=== PATIENT | female | born 1945 | race Caucasian/White ===

== ENCOUNTER 2024-12-15 16:56 | Inpatient (IN) | payer MEDICARE, SELFPAY ==
[2024-12-15] VITALS (7 sets, daily range): BP systolic 135–159; BP diastolic 55–128; BMI 24.1
--- NOTE | 2024-12-15 14:35 | ED.GENMED ---
History of Present Illness
General
Chief Complaint: Dizziness
Source: patient
Exam Limitations: none
Time Seen by Provider: 12/15/24 14:22
History of Present Illness
History of Present Illness:
See MDM
Past History
Past History
ED Past Medical History: CAD, Cancer and HTN
ED Past Surgical History: Cardiac
Social History
Tobacco: Non-smoker
Alcohol: None
Phy Exam
Physical Exam
Physical Exam:
See MDM
Course
Orders/Labs/Results
Orders:
Orders
12/15/24 14:35
CR Chest - 2 Views Urgent
Comment:
Reason For Exam: Cough, chest pressure
12/15/24 14:37
Electrocardiogram (*1) Urgent
Reason for Study: Chest Pain
EKG- Treatment ONCE
12/15/24 14:47
COVID-19 Antigen Urgent
Source: Nasal Swab
Complete Blood Count/With Diff Urgent
Comprehensive Metabolic Panel Urgent
NT-proBNP Urgent
PTT Urgent
Prothrombin Time Urgent
Troponin I Urgent
12/15/24 15:43
Aspirin Chewable [Low Strength Aspirin] 243 mg PO NOW STA
Guaifenesin/Dextromethorphan [Robitussin Dm] 10 ml PO NOW STA
Nitroglycerin Sublingual [Nitrostat (Sublingual)] 0.4 mg SL [id number] PRN
Potassium Chloride Powder [Klor-Con] 40 meq PO NOW STA
12/15/24 15:47
Consult Cardiology [CARDIOLOGY CONSULT] Urgent
Consulting Provider: Baldemar Bowman
Was physician already notified: Yes
12/15/24 16:28
Heparin 3,800 units IV NOW STA
12/15/24 16:[address] Non Medication Order As Directed
Physician Order: PTT 6 hours after initial start of Heparin infusion
Above order entered?: Yes
12/15/24 16:30
Heparin 07814 Units/250 ml 25,000 units in 250 ml IV PER PROTOCOL
Weight to be used for heparin protocol in kilograms (kg):: 63.6
Protocol:: Cardiac Tx/Acute Coronary
PTT Goal Range to be used:: PTT 73 to 111 seconds
Order type:: Initial
INITIAL Infusion Dose (UNITS/KG/hr) & then follow protocol:: 12 units/kg/hr
Infusion Dose in UNITS/hr & then follow protocol (UNITS/hr):: 750
INFUSION RATE in mL/hr & then follow protocol (mL/hr):: 7.5
PTT less than or equal to 64 seconds:: Increase rate by 200 units/hr (+ 2 mL/hr)
PTT 64.1 to 72.9 seconds:: Increase rate by 100 units/hr (+ 1 mL/hr)
PTT 73 to 111 seconds:: Target Range. No change in rate.
PTT 111.1 to 130.9 seconds:: Decrease rate by 100 units/hr (- 1 mL/hr)
PTT 131 to 199.9 seconds:: HOLD for 1 hr. Then decrease rate by 200 units/hr (- 2 mL/hr)
PTT greater than or equal to 200 seconds:: HOLD for 2 hrs & Notify Provider. Then decrease by 200 units/hr (-
2 mL/hr)
Lab follow-up:: Each change, PTT q6h until 2 consecutive are therapeutic. Then PTT
daily.
12/15/24 16:45
Admit/Transfer Patient As Directed
Co-Sign Provider:
Level of Care: Inpatient admission
Assign to:: IVU
Physician / Group: Hospitalist
Diagnosis: Chest pain
Reason for Hospitalization: .
Expected length of stay greater than two midnights?: Yes
ELOS- Estimated Length of Stay in days: 3
I certify the patient meets the requirements for IP care: Yes
PRN Pain Medication Management As Directed
May give lesser potent ordered pain med per pt: Yes
preference::
Protocol:: Medication orders for pain may be administered in a
manner that supports deferring to patient preference
when the pt is:
- Requesting an ordered lesser potent pain medication.
Least to most potent pain medications are defined
as: acetaminophen < NSAID < tramadol < opioids
(morphine, oxycodone, hydromorphone).
- Requesting a lesser dose of the same medication IF
ORDERED.
- Requesting a less intrusive route of administration
if both routes are prescribed by the provider (PO <
IV).
12/15/24 16:48
Nitroglycerin 100 mg/250 ml [Nitroglycerin Premix] 100 mg in 250 ml IV NOW
Initial dose in mcg/min, then titrate:: 5
Titrate to keep:: SBP < 160 mmHg
Titrate by mcg/min:: 5 mcg/min, may increase by 10 mcg/min if dose > 20 mcg/min
Frequency of titrations (minutes):: every 3-5 minutes
Maximum dose in mcg/min:: 200
Begin to taper infusion when:: Remained at goal for 2hrs
Taper by mcg/min:: 5 mcg/min
Frequency of taper (minutes) if patient maintains goal:: 30
Taper to off?: Yes
If infusion off & no longer maintaining goal:: Contact Provider
12/15/24 18:03
Acetaminophen [Tylenol] 500 mg PO DAILYPRN PRN mild pain
12/15/24 20:00
Lisinopril [Zestril] 5 mg PO BID
12/15/24 22:00
Alprazolam [Xanax] 0.25 mg PO HS
12/16/24 08:00
Non-Formulary Item See Dose Instructions PO DAILY
Non-Formulary Item See Dose Instructions PO DAILY
Abnormal Lab Results
12/15/24
14:47
RBC 3.86 L 10^6/uL
(4.20-5.40)
Hgb 11.0 L g/dL
(12.0-16.0)
Hct 33.4 L %
(37.0-47.0)
MCHC 32.9 L g/dL
(33.0-37.0)
RDW 15.3 H %
(11.5-14.5)
Absolute Lymphs (auto) 1.0 L 10^3/uL
(1.2-3.4)
Lymphocytes % 15.4 L %
(20.5-51.1)
Monocytes % 10.2 H %
(1.7-9.3)
PT 15.0 H Sec
(11.4-14.6)
APTT 36.8 H Sec
(23.4-35.0)
Potassium 3.1 L mmol/L
(3.5-5.1)
Carbon Dioxide 31 H mmol/L
(22-30)
Glucose 127 H mg/dl
(70-99)
Troponin I 0.154 H* ng/ml
Albumin 3.3 L g/dl
(3.5-5.0)
12/15/24 14:47
12/15/24 14:47
Vital Signs
Initial and Last Documented VS:
Initial Vital Signs
Temp Pulse Resp BP Pulse Ox
98.0 F 78 16 152/66 94
12/15/24 13:22 12/15/24 13:22 12/15/24 13:22 12/15/24 13:22 12/15/24 13:22
Last Documented Vital Signs
Temp Pulse Resp BP Pulse Ox
98.9 F 67 18 137/47 96
12/16/24 15:33 12/16/24 16:45 12/16/24 15:33 12/16/24 15:05 12/16/24 15:33
MDM/Problems Addressed
Differential Diagnosis Includes:
HPI and MDM Narrative:
79-year-old female presenting with several days of cough and chest pressure. Patient was seen at multiple emergency departments recently. She states she left the first emergency department when she felt that she was not being treated
appropriately. She then went to another emergency department and it was suggested that she was admitted for an elevated troponin. However, they refused to treat her cough so she then left. She comes to the emergency department here for persistent
cough and chest pressure. Patient has a history of CABG 7 years ago. She is on aspirin and Plavix. Patient states she believes that she needs to be admitted again. Will repeat blood work and EKG
Patient has a history of stage I vocal cord cancer. She just finished several treatments of vocal cord radiation.
Physical exam
General: Well appearing and non-toxic
HEENT: protecting airway. Hoarse voice
Neck: supple
CV: No evidence of cyanosis. Regular rate and rhythm
Resp: No accessory muscle use. Lungs clear
Abd: Non-distended
Extremities: No deformities. Bilateral edema bilateral lower extremities
Neuro: alert
Psych: Normal affect
Skin: Intact
Problems Addressed including Acute and Chronic Conditions affecting care:
1. Cough
Acuity: acute
Prognosis: stable
Details: Will obtain chest x-ray
2. Chest pressure
Acuity: acute
Prognosis: stable
Details: Will obtain EKG and troponin
Updates
Patient found to have elevated troponin. At this time, patient now developing chest pressure. Will give nitroglycerin and discuss case with cardiology to decide whether or not to start heparin. She took 1 baby aspirin and 1 Plavix earlier today.
Will give 3 more baby aspirin. Will replete potassium as well
Case discussed with cardiology who agreed with starting heparin
Case we discussed with cardiology who also recommended starting nitro drip
Differential Diagnosis (but not limited to): Noncardiac chest pressure, ACS, myocarditis, pneumonia
Testing considered: D-dimer
Drug therapy (if applicable): OTC meds, please see d/c instruction regarding Rx drugs
Amount and/or Complexity of Data Reviewed
Clinical info obtained from: Patient
External data reviewed: N/A
Labs I independently reviewed (but not limited to): Elevated troponin
Radiology: N/A
Pulse Ox: not hypoxic
EKG independently reviewed: Sinus rhythm, ST depression and T wave inversions inferior and laterally, no STEMI
Purchase Order Checker: Sinus rhythm
Critical Care: The high probability of a clinically significant, sudden or life threatening deterioration of the cardiovascular system(s) required my full and direct attention, intervention and personal management. The aggregate critical care time
was 35 minutes. This time is in addition to time spent performing reported procedures but includes the following:
[x] Data Review and interpretation
[x] Patient assessment and monitoring of vital signs
[x] Documentation
[x] Medication orders and management
Risk of Complication:
Social Determinants of health: Good social support
Discussed with other providers: Schedule Announcer, hospitalist
Escalation of Care includes Admit/Obs: Given prior history of elevated troponin, will admit for further workup
Occasional wrong word or 'sound a like' substitutions may have occurred due to the inherent limitations of voice recognition software. Read the chart carefully and recognize, using context, where substitutions have occurred.
*Pulse Oximetry
SaO2: 94
Oxygen Mode of Delivery: Room air
Patient hypoxic: no
*Critical Care Note
Total Time (30-74mins, 75-104mins- exclusive of procedures): 35 min
ED Attending Note
-
Portions of this chart may have been created with voice recognition software.� Occasional wrong word or��sound alike� substitutions may have occurred due to the inherent limitations of voice recognition software.
Discharge Plan
Departure
Patient Disposition: Admit
Date of Disposition: 12/15/24
Time of Disposition: 15:50
Admit to: Telemetry
Presentation/result/management discussed w/ accepting MD/DO: Hospitalist
Discharge Problem:
Non-ST elevation [place] (NSTEMI)
Interventions
Interventions:
*Risk Screen - Suicide Last Done: 12/15/24 13:22
*General Assessment Last Done: 12/15/24 16:24
*Neglect/Abuse Screening Last Done: 12/15/24 13:22
*ED- Fall Risk Assessment Last Done: 12/15/24 16:31
*ED COVID-19 Vaccine History Last Done: 12/15/24 16:24
*Nursing Disposition Last Done: 12/15/24 18:25
ED- Cardiac Assessment Last Done: 12/15/24 15:00
ED- Neurological Assessment Last Done: 12/15/24 15:31
ED Swallowing Screen Last Done: 12/15/24 15:31
Discharge Date and Time
Discharge Date/Time: 12/15/24 18:26
[2024-12-15 15:04] LABS: Hematocrit 33.4 % (37.0-47.0); Hemoglobin 11.0 g/dL (12.0-16.0); Mean Corp Hgb Conc. 32.9 g/dL (33.0-37.0); Mean Corpuscular Volume 86.5 fL (81.0-99.0); Nucleated Red Blood Cells % 0 %; Platelet Count 223 10^3/uL (130-400); Red Cell Dist. Width 15.3 % (11.5-14.5)
[2024-12-15 15:11] LABS: INR 1.15; PT 15.0 Sec (11.4-14.6)
[2024-12-15 15:12] LABS: APTT 36.8 Sec (23.4-35.0)
[2024-12-15 15:20] LABS: ALT (SGPT) 12 U/L (0-35); AST (SGOT) 20 U/L (14-36); Albumin 3.3 g/dl (3.5-5.0); Alkaline Phosphatase 67 U/L (38-126); Blood Urea Nitrogen 7 mg/dl (7-17); Calcium 9.3 mg/dl (8.4-10.2); Carbon Dioxide 31 mmol/L (22-30); Chloride 99 mmol/L (98-107); Glucose 127 mg/dl (70-99); Potassium 3.1 mmol/L (3.5-5.1); Sodium 135 mmol/L (135-145); Total Protein 6.4 g/dl (6.3-8.2); eGFR 57.66
[2024-12-15 15:35] LABS: COVID-19 Antigen Negative (Negative)
[2024-12-15 15:37] LABS: Troponin I 0.154 ng/ml
[2024-12-15] MEDS: ROBITUSSIN DM 10 ML PO (15:51)
[2024-12-15] MEDS: LOW STRENGTH ASPIRIN 243 MG PO (15:51)
[2024-12-15] MEDS: NITROSTAT (SUBLINGUAL) 0.4 MG SL (15:52)
--- NOTE | 2024-12-15 16:00 | CON.CAR ---
Consultation
Consultation Request
Date/Time Consultation Requested: 12/15/2024 at 1600
Date/Time Consultation Performed: 12/15/2024 at 1615
Requesting Provider: Dr. Fernando Glass
Performing Provider: Dr. Baldemar Bowman
Reason for Consultation: Chest pain with EKG changes and positive troponin
Medical History
-
Chief Complaint: Chest pressure
History of Present Illness:
79-year-old woman with a history of coronary artery bypass years ago, at [facility]. She reports that a year later she had a PCI. In September diagnosed with vocal cord cancer, and has completed radiation therapy without chemotherapy or
extensive resection. She has been troubled by chronic cough since that time and hoarseness. She has lost 20 pounds. Starting about 2 weeks ago she began to develop chest pressure that was often worse lying down. She had an overnight observation
stay at [facility] and since then has had 3 or 4 ER visits, [address] [facility] facility 2 at [facility] and now [facility]. Cardiac catheterization was mentioned in the detectable troponin was mentioned. At times she left the
hospital ER for various reasons. She is now here with persistent chest pressure. This did not markedly improved with sublingual nitro. She has been on Plavix and aspirin for many years.
Past Medical History
Past Medical History: CAD, Cancer (Vocal cord cancer, has received radiation therapy), COPD, Hypercholesterolemia (Statin intolerant, on Praluent as) and NIDDM
Past Surgical History: Cardiac (History of CABG)
Allergies / Home Medications
Allergy/AdvReac Type Severity Reaction Status Date / Time
spironolactone Allergy Unknown Verified 12/15/24 13:29
Boqsvav-NUI-MyE Reductase Allergy Unknown Verified 12/15/24 13:29
Inhibitor
Review of Systems
-
Unable to obtain full review of systems at this time due to: Other (Vocal cord surgery)
History Source: Patient and Family
All other systems: Negative unless noted
Physical Exam
Vital Signs
Temp Pulse Resp BP Pulse Ox
36.7 C 68 21 151/119 94
12/15/24 13:22 12/15/24 15:30 12/15/24 15:30 12/15/24 15:52 12/15/24 14:37
Lab Results
12/15/24 14:47
12/15/24 14:47
Troponin I 0.154 ng/ml H* 12/15/24 14:47
Fbh-B-Ojrzjbohern Pept 4700 pg/ml 12/15/24 14:47
Physical Exam
General: No Apparent Distress and Other
HEENT: Normocephalic (Difficulty speaking related to recent vocal cord radiation/biopsy)
Respiratory: Clear
Cardiac: Regular Rhythm and Murmur (No murmur)
GI: Soft and Non Tender
Musculoskeletal: No Cyanosis and No Edema
Skin: Dry
Neuro: AO x 3
Psych: Calm
Impression / Plan
-
Impression:
Acute coronary syndrome
CAD status post CABG/PCI
Statin intolerant hypercholesterolemia on Praluent
COPD
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
Hypertension
Diet controlled diabetes
Weight loss
Plan:
She presents with an acute coronary syndrome and anterior lateral T wave inversions. Despite this, she seems comfortable at present, so we will not send her urgently to the [employer] [facility]. Will treat with IV heparin and IV nitro, add low-dose
metoprolol, and plan on proceeding with cardiac catheterization on Tuesday.
Will check echo.
Data Reviewed
-
EKG: Tracing Personally Visualized and interpreted (Normal sinus rhythm, diffuse anterolateral and inferior T wave inversions, no prior tracings available)
Radiology: Image Personally Visualized and interpreted (Cardiomegaly)
Labs: Labs Reviewed by me (Hemoglobin 11.0, white count 6.3, potassium 3.1, CO2 31, BUN/creatinine 7 and 1.0, troponin 0.154, proBNP 4700)
Old Records: Requested
[2024-12-15] MEDS: HEPARIN 3800 UNITS IV (16:40)
[2024-12-15] MEDS: HEPARIN 25000 UNITS/250 ML IV (16:41)
--- NOTE | 2024-12-15 16:41 | PHANOTE ---
med rec tech note 12/15/24: Patient states that she must have name brand Plavix due to an allergy. She has her own supply.
--- NOTE | 2024-12-15 16:43 | HPS.HSE ---
Family Physician
-
Family Physician: Jose Oakley
Chief Complaint
-
Chest pain for 10 days duration
History of Present Illness
79 years old female with history of coronary artery disease presented with chest pain, pressure-like. On and off for 10 days. Patient went to [facility]. She was discharged home. She continued to have a problem and went to
[facility] Where she was told she had elevated troponin and needed to be admitted. She was admitted to the hospital. Patient has chronic cough and requested Robitussin, according to the patient. She was not given Robitussin and
she left the hospital against medical advice. In the emergency room, she had mildly positive troponin at 0.154. Chest x-ray, no acute findings, EKG nonspecific ST elevation with no comparison available. Patient was seen by electric meter repairer on-call
and started on intravenous heparin and the recommendation to be admitted for left heart catheterization in near future.
Medical History
Past Medical History
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
Past Surgical History: Reports Other (No recent major surgery)
Social History
Tobacco: Former Smoker
Alcohol: Occasional
Drug: None
Personal:
Living: With Family
Employment: Retired
Family History
Family History: Not pertinent
Allergies / Home Medications
Allergies reflects when Allergies were last updated in [employer].
Home Medications with original date entered in [employer]
Allergy/Medication List:
Allergies
Allergy/AdvReac Type Severity Reaction Status Date / Time
spironolactone Allergy Unknown Verified 12/15/24 13:29
Jhnxztf-VUG-BnC Reductase Allergy Unknown Verified 12/15/24 13:29
Inhibitor
Home Medications
Lactobac no.2-Bifidobac no.1-S. thermo 112.5 billion cell capsule (TipHivebiome) 1 cap PO DAILY 07/12/25
acetaminophen 500 mg tablet 500 mg PO DAILYPRN PRN mild pain 12/15/24
alirocumab 150 mg/mL subcutaneous pen injector (Praluent Pen) 150 mg SC Q2W 12/15/24
alprazolam 0.25 mg tablet 0.25 mg PO HS 12/15/24
aspirin 81 mg tablet 81 mg PO DAILY 12/15/24
clopidogrel 75 mg tablet (Plavix) 75 mg PO DAILY 12/15/24
doxycycline hyclate 20 mg tablet 20 mg PO BID 12/15/24
lisinopril 2.5 mg tablet 2.5 mg PO NOON 12/15/24
lisinopril 5 mg tablet 5 mg PO BID 12/15/24
scopolamine base 1 mg over 3 days transdermal patch 1 patch transdermal DAILY 12/15/24
Review of Systems
-
History Source: Patient
A 12 point ROS was completed and negative except as noted: Yes
Constitutional: Denies Fever or Chills
EENT: Denies Sore Throat
Respiratory: Reports Cough
Cardiac: Reports Chest Pain (Not at time of interviewing the patient)
Abdomen/GI: Denies Abdominal Pain, Nausea or Vomiting
: Denies Dysuria or Bleeding
Musculoskeletal: Denies Joint Swelling or Edema
Neurological: Denies Numbness
Endocrine: Denies Temp Intolerance
Hematologic/Lymphatic: Denies Bruising
Psych: Reports Anxiety; Denies Panic Disorder
Physical Exam
Vital Signs
Vital Signs
Temp Pulse Resp BP Pulse Ox
98.0 F 70 21 135/55 94
12/15/24 13:22 12/15/24 16:24 12/15/24 16:24 12/15/24 16:00 12/15/24 14:37
Physical Exam
General: No Apparent Distress and Comfortable
HEENT: Moist mucous membranes, Atraumatic and Other (Hoarse voice)
Respiratory: Clear
Cardiac: S1/S2 and Regular Rhythm
GI: Soft, Non Tender and Non Distended
Genito-urinary: No Shelley
Musculoskeletal: No Clubbing, No Cyanosis and No Edema
Neuro: AO x 3 and Nonfocal/grossly intact
Psych: Calm and Intact Judgment/Insight
Laboratory Results
-
12/15/24 14:47
12/15/24 14:47
Laboratory Results
PT 15.0 Sec (11.4-14.6) H 12/15/24 14:47
INR 1.15 12/15/24 14:47
APTT 36.8 Sec (23.4-35.0) H 12/15/24 14:47
Total Bilirubin 0.7 mg/dl (0.2-1.3) 12/15/24 14:47
AST 20 U/L (14-36) 12/15/24 14:47
ALT 12 U/L (0-35) 12/15/24 14:47
Alkaline Phosphatase 67 U/L (38-126) 12/15/24 14:47
Troponin I 0.154 ng/ml H* 12/15/24 14:47
Impression/Plan
-
Assessment and plan
#Chest pain with history of angina chest pain, unstable angina
Non-ST elevation [place]
Admit the patient to the hospital
Patient currently does not have chest pain
Start the patient on intravenous heparin
Start the patient on low-dose nitrate
Continue antiplatelet therapy with aspirin and Plavix
Discussed with electric meter repairer on-call, monitor the patient and plan for left heart catheterization on Tuesday
Order echocardiogram
internet ecommerce specialist
Appreciate cardiology input
# Hypokalemia, replace
# Chronic cough
Normal chest x-ray
Patient denies aspiration risk
Patient requesting to use her own's Robitussin bottle with brewer flavor
# Essential hypertension
# History of vocal cord cancer/squamous cell status post radiation with hoarseness/whispering of voice
Patient denies dysphagia
Currently not on chemotherapy
# History of insomnia/anxiety
On chronic benzodiazepine therapy
# History of dental implants/chronic antibiotic therapy
# Try to get records from [facility] as patient is new to us
Total time spent to see the patient, examine the patient, review data and lab result, discuss treatment plan with patient, ER doctor, electric meter repairer, nursing staff around 75 minutes
--- NOTE | 2024-12-15 17:08 | CM ---
CM reviewed chart and met with pt and bedside in ED.
Lives with in 1 story home, [address].
Pt is independent in ADLs, personal care and ambulation at baseline. No DME.
Hx VN 8 years ago after heart surgery, no hx SNF.
PCP; Jose Oakley
Pharmacy:[facility]
Discharge plan: Anticipate home, watch for needs
[2024-12-15] MEDS: NITROGLYCERIN PREMIX 250 IV (17:35)
--- NOTE | 2024-12-15 18:47 | PTCARENOTE ---
Received pt from the ED via stretcher. VSS. Pt continues to c/o 3 out of 10 midsternal 'chest pressure'. Pt denies dizziness or sob. Heparin infusing at 7.5 ml/hr. Nitroglycerin drip infusing at 5 mcg/kg/min. Oriented pt to IVU. Pt ambulatory
and sitting in the recliner at this time. Will monitor.
[2024-12-15] MEDS: XANAX 0.25 MG PO ×2 (21:59→22:01)
[2024-12-15] MEDS: NON-FORMULARY ITEM 1 UNIT PO (22:00)
[2024-12-15] MEDS: TRANSDERM-SCOP 1 PATCH TRANSDERM (22:01)
[2024-12-15] MEDS: KCL 160 MEQ IV (22:02)
[2024-12-15] MEDS: NON-FORMULARY ITEM 10 ML PO (22:28)
[2024-12-15] MEDS: NON-FORMULARY ITEM PO (22:55)
--- NOTE | 2024-12-15 23:25 | PTCARENOTE ---
received patient at the change of shift. patient refusing nitro gtt from the previous shift r/t itching of the skin. patient is currently chest pain free. educated to call RN with any changes in pain. heparin gtt infusing per protocol. SR on tele
60s. independent in the room. patient will not take hospital medications- states only wanted to take her own 'brand'. updated Cristina Stearns UPHOLSTERER OUTSIDE. orders placed for medications and sent to pharmacy. K3.1. patient states NOT taking any potassium in the
ED. updated Cristina Stearns as well. RN was able to educate patient on the importance and patient allowed for IV K. ordered and given. running at a slow rate- okay per pharmacy. patient reluctant to let RN complete tasks. educated patient on
importance, for example blood draws. patient allowed RN to draw blood and states 'no more after that.' again, educated patient on importance and patient verbalized understanding but 'still not happy.' comfort measures provided. call huang within
reach. makes needs known.
[2024-12-15 23:27] LABS: APTT 77.8 Sec (23.4-35.0)
[2024-12-15 23:41] LABS: Troponin I 0.157 ng/ml
[2024-12-16] VITALS (8 sets, daily range): BP systolic 137–181; BP diastolic 47–75; BMI 24.4
[2024-12-16] MEDS: NON-FORMULARY ITEM 10 ML PO ×4 (05:31→20:07)
[2024-12-16 06:04] LABS: APTT 74.7 Sec (23.4-35.0)
[2024-12-16 06:21] LABS: Blood Urea Nitrogen 6 mg/dl (7-17); Calcium 8.5 mg/dl (8.4-10.2); Carbon Dioxide 28 mmol/L (22-30); Chloride 104 mmol/L (98-107); Estimated Creatinine Clearance 44 ml/min; Glucose 91 mg/dl (70-99); Potassium 3.8 mmol/L (3.5-5.1); Sodium 136 mmol/L (135-145); eGFR > 60.00
[2024-12-16 06:35] LABS: Troponin I 0.112 ng/ml
--- NOTE | 2024-12-16 08:22 | W.PN.HOSP.TC ---
Today's Communication/Plan
-
Patient is taking medications from her home bottles except Xanax
Continue with IV heparin
As needed Zofran for nausea
Assessment / Plan
Assessment / Plan
Physical Exam
General: No Apparent Distress and Comfortable
HEENT: Moist mucous membranes, Atraumatic and Other (Hoarse voice)
Respiratory: Clear
Cardiac: S1/S2 and Regular Rhythm
GI: Soft, Non Tender and Non Distended
Genito-urinary: No Shelley
Musculoskeletal: No Clubbing, No Cyanosis and No Edema
Neuro: AO x 3 and Nonfocal/grossly intact
Psych: Calm and Intact Judgment/Insight
#Chest pain with history of angina chest pain, unstable angina
Non-ST elevation [place]
Patient currently does not have chest pain
Started the patient on intravenous heparin
Increase lisinopril to 5 mg twice daily. She is taking Plavix, lisinopril and aspirin from home, she refused BB .
Continue antiplatelet therapy with aspirin and Plavix
Discussed with field automobile adjuster on-call, monitor the patient and plan for left heart catheterization on Tuesday
Order echocardiogram
hospital monitor
Appreciate cardiology input
# Hypokalemia, replaced
# Nausea, no abdominal pain, as needed Zofran
# Chronic cough
Normal chest x-ray
Patient denies aspiration risk
Patient requesting to use her own's Robitussin bottle with brewer flavor
# Essential hypertension
Slightly uncontrolled, increased JOSE Lisinopril
# History of vocal cord cancer/squamous cell status post radiation with hoarseness/whispering of voice
Patient denies dysphagia
Currently not on chemotherapy
# History of insomnia/anxiety
On chronic benzodiazepine therapy
# History of dental implants/chronic antibiotic therapy
# Try to get records from [facility] as patient is new to us
Acute coronary syndrome
CAD status post CABG/PCI
Statin intolerant hypercholesterolemia on Praluent
COPD
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
Hypertension
Diet controlled diabetes
Weight loss
Total time spent to see the patient, examine the patient, review data and lab result, discuss treatment plan with patient, nursing staff around 55 minutes
Anticipated Discharge: > 48 hours
Subjective/Interval History
-
Date of Service: December 16, 2024
She denies chest pain
Objective Data
-
Labs:
Laboratory Results
12/15/24 12/16/24
22:57 05:35
APTT 77.8 H 74.7 H
Sodium 136
Potassium 3.8
Chloride 104
Carbon Dioxide 28
BUN 6 L
Creatinine 0.9
Glucose 91
Calcium 8.5
Vital Signs:
Vital Signs
Temp Pulse Resp BP Pulse Ox
98.6 F 75 17 155/48 95
12/16/24 07:53 12/16/24 05:35 12/16/24 07:53 12/16/24 05:35 12/16/24 07:53
I&O
12/15/24 12/16/24 12/17/24
06:59 06:59 06:59
Intake Total 250 / 250
Balance 250 / 250
--- NOTE | 2024-12-16 09:15 | W.PN.CARDCBS ---
Today's Communication / Plan
-
Cardiac cath in a.m.
Bumex 0.5 mg IV x 1
No beta-adrianna or Lasix, patient refuses
Continue heparin
Impression / Plan
-
Impression:
Acute coronary syndrome
CAD status post CABG/PCI
Statin intolerant hypercholesterolemia on Praluent
COPD
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
Hypertension
Diet controlled diabetes
Weight loss
Plan:
She had a quiet night, ECG is pending at this time, no chest pain, states she feels well.
However, some evidence of volume overload. She states that 'Lasix does not work for 4 days and then works nonstop'. However she is willing to accept a small dose of IV Bumex
She is beta-adrianna intolerant and during sleep heart rate is in the 50s.
Will renew heparin.
Records for op note for CABG have been requested.
Increase lisinopril to 5 mg twice daily. She is taking Plavix, lisinopril and aspirin from home.
Cardiac catheterization tomorrow.
Await echocardiogram.
Progress Note - [employer] Physical Education Teacher
Subjective
Date of Service: December 16, 2024:
79-year-old woman with remote coronary artery bypass surgery and PCI a year later, now with symptoms of chest discomfort, an overnight observation stay at [facility] at multiple ER visits at several institutions admitted yesterday with troponin
of 0.15 with anterolateral and inferior T wave inversions
PMH CAD, CABG, PCI, vocal cord cancer just compete pleated radiation therapy, COPD, hypercholesterolemia on Praluent, diabetes and hypertension
Current medications: IV heparin, IV nitroglycerin, Xanax, aspirin 81 mg a day, Plavix 75 mg a day, doxycycline, lisinopril 5 mg twice daily, IV nitroglycerin has been discontinued, scopolamine patch
States she is very poorly tolerant of metoprolol, also refuses Lasix,
155/48, pulse 75, states she feels well, has rales in bases, has what could be loud S3, JVD minimally elevated, systolic murmur, abdomen benign extremities without edema
Hemoglobin 11.0, platelets 223, BUN and creatinine are 6 and 0.9 potassium is 3.8, proBNP is 4700, troponin is 0.112
Objective
Labs:
12/15/24 14:47
12/16/24 05:35
Labs
Hgb 11.0 g/dL (12.0-16.0) L 12/15/24 14:47
Hct 33.4 % (37.0-47.0) L 12/15/24 14:47
Plt Count 223 10^3/uL (130-400) 12/15/24 14:47
PT 15.0 Sec (11.4-14.6) H 12/15/24 14:47
INR 1.15 12/15/24 14:47
APTT 74.7 Sec (23.4-35.0) H 12/16/24 05:35
Sodium 136 mmol/L (135-145) 12/16/24 05:35
Potassium 3.8 mmol/L (3.5-5.1) 12/16/24 05:35
BUN 6 mg/dl (7-17) L 12/16/24 05:35
Creatinine 0.9 mg/dL (0.6-1.0) 12/16/24 05:35
Glucose 91 mg/dl (70-99) 12/16/24 05:35
Troponins
12/15/24 12/15/24 12/15/24
14:47 17:15 22:57
Troponin I 0.154 H* Cancelled 0.157 H*
12/16/24
05:35
Troponin I 0.112 H* D
Vital Signs and I&O:
Vital Signs
Temp Pulse Resp BP Pulse Ox
37.0 C 75 17 155/48 95
12/16/24 07:53 12/16/24 05:35 12/16/24 07:53 12/16/24 05:35 12/16/24 07:53
Vital Signs
Temp Pulse Resp BP Pulse Ox
37.0 C 75 17 155/48 95
12/16/24 07:53 12/16/24 05:35 12/16/24 07:53 12/16/24 05:35 12/16/24 07:53
Intake & Output
12/14/24 12/15/24 12/16/24 12/17/24
07:59 07:59 07:59 07:59
Intake Total 250 / 250
Balance 250 / 250
Physical Exam
Physical Exam
See above
[2024-12-16] MEDS: ZOFRAN 4 MG IV (09:41)
[2024-12-16] MEDS: NON-FORMULARY ITEM 1 UNIT PO ×4 (09:58→22:09)
[2024-12-16] MEDS: NON-FORMULARY ITEM 20 MG PO ×2 (10:00→22:08)
[2024-12-16] MEDS: VISBIOME 1 CAP PO (10:32)
[2024-12-16] MEDS: BUMEX 0.5 MG IV (10:38)
--- NOTE | 2024-12-16 13:22 | PTCARENOTE ---
Discussed the importance of taking all medications. Discussed the importance of Kcl replacement. Pt refused KCL 40 meq, po. aware. Will monitor.
[2024-12-16] MEDS: ANESTHETIC LOZENGE 1 LOZENGE PO ×2 (13:28→20:54)
[2024-12-16] MEDS: TRANSDERM-SCOP TRANSDERM (17:53)
[2024-12-16] MEDS: TRANSDERM-SCOP 1 PATCH TRANSDERM (20:57)
[2024-12-16] MEDS: XANAX 0.25 MG PO (22:10)
--- NOTE | 2024-12-16 22:24 | PTCARENOTE ---
Received patient at change of shift. SR on the monitor, HR in the 70s. VSS on room air. Heparin running as per protocol, see documentation. 20:00 meds administered at 22:00 as per pt request. PRN Xanax administered as per pt request. Call huang
within reach.
[2024-12-17] VITALS (15 sets, daily range): BP systolic 60–164; BP diastolic 36–119; BMI 24.2
[2024-12-17] MEDS: NON-FORMULARY ITEM 10 ML PO (01:17)
[2024-12-17] MEDS: HEPARIN 25000 UNITS/250 ML IV (02:15)
[2024-12-17 02:46] LABS: Hematocrit 29.9 % (37.0-47.0); Hemoglobin 10.0 g/dL (12.0-16.0); Mean Corp Hgb Conc. 33.4 g/dL (33.0-37.0); Mean Corpuscular Volume 86.9 fL (81.0-99.0); Platelet Count 223 10^3/uL (130-400); Red Cell Dist. Width 15.5 % (11.5-14.5)
[2024-12-17 03:01] LABS: APTT 59.7 Sec (23.4-35.0)
[2024-12-17 03:09] LABS: Blood Urea Nitrogen 7 mg/dl (7-17); Calcium 8.7 mg/dl (8.4-10.2); Carbon Dioxide 33 mmol/L (22-30); Chloride 103 mmol/L (98-107); Estimated Creatinine Clearance 40 ml/min; Glucose 101 mg/dl (70-99); Potassium 3.5 mmol/L (3.5-5.1); Sodium 136 mmol/L (135-145); eGFR 57.66
[2024-12-17] MEDS: XANAX 0.25 MG PO ×2 (08:45→21:48)
[2024-12-17] MEDS: NON-FORMULARY ITEM 1 UNIT PO ×4 (08:46→21:47)
[2024-12-17] MEDS: VISBIOME 1 CAP PO (08:46)
[2024-12-17] MEDS: NON-FORMULARY ITEM 20 MG PO ×2 (08:47→21:46)
--- NOTE | 2024-12-17 09:14 | PTCARENOTE ---
received patient this am, has alot of questions. patient remains NPO for heart cath today. patient is extremely anxious about procedure and request Xanax po, TT Deysi GOLDSMITH, Xanax po given as ordered along with her am medications. patient has a
raspy voice from vocal cord cancer, able to swallow pills, just 2 at a time. monitor shows NSR, VSS.
--- NOTE | 2024-12-17 09:15 | W.PN.HOSP.TC ---
Today's Communication/Plan
-
For cardiac catheterization today
Assessment / Plan
Assessment / Plan
#Chest pain with history of angina chest pain, unstable angina
#Non-ST elevation GA
Patient currently does not have chest pain
Patient refusing beta-adrianna, Lasix. Status post IV Bumex 12/16
Appreciate cardiology input, for cardiac catheterization today
Continue IV heparin drip, home aspirin, Plavix, lisinopril.
Echocardiogram requested
#Hypokalemia
replaced
#Nausea
no abdominal pain, as needed Zofran
#Chronic cough
Normal chest x-ray
Patient denies aspiration risk
Patient requesting to use her own's Robitussin bottle with brewer flavor
#Essential hypertension
Slightly uncontrolled, increased JOSE Lisinopril
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
Patient denies dysphagia
Currently not on chemotherapy
#History of insomnia/anxiety
On chronic benzodiazepine therapy
#History of dental implants/chronic antibiotic therapy
DVT prophylaxis�IV heparin drip
Full code
Total time spent to see the patient on the floor, examine the patient, review data and lab results, discuss treatment plan with patient, nursing staff around 39 minutes.
Physical Exam
General: No Apparent Distress and Comfortable
HEENT: Moist mucous membranes, Atraumatic and Other (Hoarse voice)
Respiratory: Clear
Cardiac: S1/S2 and Regular Rhythm
GI: Soft, Non Tender and Non Distended
Genito-urinary: No Shelley
Musculoskeletal: No Clubbing, No Cyanosis and No Edema
Neuro: AO x 3 and Nonfocal/grossly intact
Psych: Calm and Intact Judgment/Insight
Anticipated Discharge: 24 - 48 hours
Subjective/Interval History
-
Date of Service: December 17, 2024
Patient has chronic hoarse voice. No recurrence of chest pain. No fever, no vomiting, no shortness of breath.
Objective Data
-
Labs:
Laboratory Results
12/17/24 12/17/24
02: 09:10
WBC 6.1
Hgb 10.0 L
Hct 29.9 L
Plt Count 223
APTT 59.7 H Pending
Sodium 136
Potassium 3.5
Chloride 103
Carbon Dioxide 33 H
BUN 7
Creatinine 1.0
Glucose 101 H
Calcium 8.7
Vital Signs:
Vital Signs
Temp Pulse Resp BP Pulse Ox
98.3 F 62 20 150/44 95
12/17/24 07:02 12/17/24 04:45 12/17/24 07:02 12/17/24 02:19 12/17/24 07:02
I&O
12/16/24 12/17/24 12/18/24
06:59 06:59 06:59
Intake Total 250 / 250 360 / 360
Balance 250 / 250 360 / 360
[2024-12-17 09:31] LABS: APTT 92.4 Sec (23.4-35.0)
--- NOTE | 2024-12-17 09:31 | W.PN.UPDATE ---
Addendum entered and electronically signed by Deysi Pricthett PA-C 12/17/24 10:29:
Got another call from Jenae at [facility] and she did additional digging and was able to find old cath and CABG reports and is faxing them down now. Jenae was also able to push images via [employer] which is huge!
Original Note:
Update Note
Progress Note Update
Patient asking to review plan of care. Talked with patient in room and reviewed cardiac cath procedure and the timing, patient does not want cath after 2 PM. We talked about 3 cases being ahead of patient and that cath would likely happen around
noon, but asked patient to be patient and give us braulio on a Tuesday and patient was agreeable.
Update: I called [facility] and connected with the cath lab technologist. They were able to find a cath from 2018, but no mention of PCI or CABG on the report. They are now using COM DEV so they can't push images because cath was from before Epic and
the images didn't switch over. label coder willing to fax me old cath report and are asking for a letterhead faxed to [phone]. I started this series of calls at [phone] and ended at [phone].
--- NOTE | 2024-12-17 10:21 | CM ---
Reviewed chart. Met with Mrs. Nunes to review discharge plans. She states she is waiting for a Cardiac Cath today. She states prior to admission she resides with her spouse in a one story home with three steps to enter. She states prior to
admission she was independent with ambulation and adls. She states she does not have any DME in the home. She states she has a prescription plan with [facility] and uses [facility]. Medical work-up in progress. The discharge plan is
to return home with her spouse when medically stable.
--- NOTE | 2024-12-17 10:36 | W.PN.UPDATE ---
Update Note
Progress Note Update
Cardiac cath obtained by me from [facility], reports reviewed and summarized below by me.
Cardiac cath 4-18: They have [facility], GREENS LABORER RCA, 100% mid LAD adding as a GREENS LABORER, discrete 95% stenosis in the Diag-1, proximal circumflex with 90% tubular stenosis, vein graft to Diag-1 with discrete 90% stenosis at the distal anastomosis that
was treated with PTCA and 2.25 mm Promus MAYRA
CABG 08/19/2016: BROWN to distal LAD, vein graft to diagonal
[2024-12-17] MEDS: TYLENOL 500 MG PO (11:16)
--- NOTE | 2024-12-17 11:17 | PTCARENOTE ---
patient c/o headache, Tylenol po given as ordered.
--- NOTE | 2024-12-17 14:14 | PTCARENOTE ---
patient is very anxious about cath today, sat with patient and offered emotional support. at bedside.
--- NOTE | 2024-12-17 14:49 | PTCARENOTE ---
echo being completed at bedside.
[2024-12-17] MEDS: ZESTRIL 2.5 MG PO (15:00)
--- NOTE | 2024-12-17 16:43 | PTCARENOTE ---
report given to labor arbitrator, the labor arbitrator came over to get patient, patient informed her that she wants 'knocked out', the nurses informed her that she cannot be knocked out. Dr. Yanez came over at bedside, talked to patient and now she is willing to
go to labor arbitrator.
--- NOTE | 2024-12-17 17:55 | ITS.CL.CATH ---
Plating Machine Operator - Catheterization
Cardiac Catheterization
Procedure Report:
LEFT HEART CATHETERIZATION
Date of Procedure: November 17, 2024
Referring: Baldemar Bowman MD
PROCEDURES:
1. Left heart catheterization, coronary angiogram.
2. Moderate sedation.
3. Selective graft angiography
INDICATION: Concern for NSTEMI
ACCESS: Left radial artery, 6Fr. sheath, under US guidance.
HEMODYNAMICS : (mmHg)
AO (s/d) : 161/53
LVEDP : 13
No significant gradient across the aortic valve to suggest aortic stenosis.
CORONARY FINDINGS
Dominance: Right
Left Main Trunk (LMT): Large caliber short vessel that gives rise to the LAD and LCx branches and is free of angiographic disease.
Left Anterior Descending Artery (LAD): Large caliber vessel with 90% stenosis in the proximal portion and 100% chronic total occlusion in the mid LAD with the distal/apical LAD collateralized from a patent BROWN graft. [id number] bridging
collaterals noted.
Left Circumflex Artery (LCx): Medium caliber left circumflex artery with moderate diffuse atherosclerotic plaque and extensive bridging collaterals noted with no obvious PCI targets.
Right Coronary Artery (RCA): The right coronary artery appears to be heavily calcified with 100% ostial occlusion with [id number] collaterals.
GRAFT ANGIOGRAPHY:
1. BROWN to LAD is widely patent. [place] distal LAD has disease in the retrograde limb but is small in caliber with no obvious PCI targets. There are bridging collaterals noted to the RCA.
2. Saphenous vein graft to D1 appears to now be occluded in the proximal portion.
SEDATION: 37 minutes of procedural sedation was utilized. IV Midazolam and IV Fentanyl were administered. An independent medical reception specialist was present to assist with and help manage the patient's level of consciousness and physiologic status.
RADIATION SUMMARY: Fluoro Time (min): 9.0, Dose (mGy): 207.47, DAP (Gy.cm2) : 14.0
Closure Device: There were no immediate intra-procedural complications. The sheath was pulled in the hot plate plywood press laborer and a vascular-band applied to the right wrist for radial artery hemostasis using the patent hemostasis technique.
CONCLUSIONS
1. Severe [place] multivessel coronary artery disease.
2. BROWN to LAD is widely patent.
3. Saphenous vein graft to D1 appears to be occluded.
RECOMMENDATIONS
1. Wean radial band per protocol. Monitor right hand perfusion and for bleeding from the radial site following removal of the vascular-band following trans-radial access.
2. Continue aggressive medical therapy and risk factor modification for secondary CAD prevention. No obvious PCI targets.
3. Hydrate with normal saline to mitigate the risk of contrast-induced acute kidney injury.
4. Follow-up with her outpatient boilermaker helper.
Jasmina Amaya MD, FAC, [facility]
[2024-12-17] MEDS: TRANSDERM-SCOP TRANSDERM (21:46)
[2024-12-18 01:35] VITALS: BP 163/56
[2024-12-18 01:54] VITALS: BMI 24.3
[2024-12-18 02:06] LABS: Hematocrit 31.3 % (37.0-47.0); Hemoglobin 10.2 g/dL (12.0-16.0); Mean Corp Hgb Conc. 32.6 g/dL (33.0-37.0); Mean Corpuscular Volume 88.4 fL (81.0-99.0); Platelet Count 219 10^3/uL (130-400); Red Cell Dist. Width 15.7 % (11.5-14.5)
[2024-12-18 03:10] LABS: Blood Urea Nitrogen 12 mg/dl (7-17); Calcium 8.5 mg/dl (8.4-10.2); Carbon Dioxide 27 mmol/L (22-30); Chloride 105 mmol/L (98-107); Estimated Creatinine Clearance 44 ml/min; Glucose 103 mg/dl (70-99); Potassium 3.7 mmol/L (3.5-5.1); Sodium 136 mmol/L (135-145); eGFR > 60.00
[2024-12-18 07:36] VITALS: BP 169/57
--- NOTE | 2024-12-18 08:08 | W.PN.HOSP.TC ---
Today's Communication/Plan
-
Discharge today
Assessment / Plan
Assessment / Plan
Physical Exam
General: No Apparent Distress and Comfortable
HEENT: Moist mucous membranes, Atraumatic and Other (Hoarse voice)
Respiratory: Clear
Cardiac: S1/S2 and Regular Rhythm
GI: Soft, Non Tender and Non Distended. Positive bowel sounds.
Musculoskeletal: No Cyanosis and No Edema
Neuro: AO x 3 and Nonfocal/grossly intact
Psych: Calm and Intact Judgment/Insight
Assessment/Plan
#Chest pain with history of angina chest pain, unstable angina
#Non-ST elevation NC, cath with severe false pass multivessel CAD, BROWN to LAD patent, SVG to D1 occluded 12/17/24
#CAD status post CABG/PCI
#Statin intolerant hypercholesterolemia on Praluent
#Intolerant to beta adrianna and Norvasc
Patient currently does not have chest pain
Intolerant to beta adrianna. Refused Lasix. Status post IV Bumex 12/16
Appreciate cardiology input, for cardiac catheterization today
Continue home aspirin, Plavix, lisinopril.
Echocardiogram requested
Continue Ranexa
Follow-up with outpatient cardiology in [place]
#Hypokalemia
replaced
#Nausea
no abdominal pain, as needed Zofran
#Chronic cough
Unremarkable chest x-ray
Patient denies aspiration risk
Patient requesting to use her own's Robitussin bottle with brewer flavor
#Essential hypertension
Slightly uncontrolled, increased JOSE Lisinopril
Low sodium diet
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
Patient denies dysphagia
Currently not on chemotherapy
#History of insomnia/anxiety
On chronic benzodiazepine therapy
#History of dental implants/chronic antibiotic therapy
#COPD
#Diet controlled diabetes mellitus
#Weight loss
DVT prophylaxis�SCDs. Lovenox.
Full code
More than 30 minutes spent in discharge including
Final examination of the patient
Summarizing hospital stay
Instructions for continuing care to all relevant caregivers
Preparation of discharge records, prescriptions, and referral forms
Total time spent (in minutes): 35
Anticipated Discharge: Today
Subjective/Interval History
-
Date of Service: December 18, 2024
Patient was seen and examined. She denied any chest pain or shortness of breath.
Objective Data
-
Labs:
Laboratory Results
12/18/24
01:49
WBC 6.7
Hgb 10.2 L
Hct 31.3 L
Plt Count 219
Sodium 136
Potassium 3.7
Chloride 105
Carbon Dioxide 27
BUN 12
Creatinine 0.9
Glucose 103 H
Calcium 8.5
Vital Signs:
Vital Signs
Temp Pulse Resp BP Pulse Ox
98.0 F 82 16 163/56 90
12/18/24 07:47 12/18/24 01:35 12/18/24 07:47 12/18/24 01:35 12/18/24 07:47
I&O
12/17/24 12/18/24 12/19/24
06:59 06:59 06:59
Intake Total 360 / 360 588 / 588
Balance 360 / 360 588 / 588
[2024-12-18] MEDS: NON-FORMULARY ITEM 1 UNIT PO ×3 (09:10→09:11)
[2024-12-18] MEDS: NON-FORMULARY ITEM 20 MG PO (09:10)
[2024-12-18] MEDS: VISBIOME 1 CAP PO (09:12)
[2024-12-18] MEDS: NORVASC 2.5 MG PO (09:15)
--- NOTE | 2024-12-18 09:37 | W.PN.CARDCBS ---
Addendum entered and electronically signed by Jaime Sanon MD 12/18/24 11:19:
I saw and examined the patient.
The TEACHER EDUCATION DIRECTOR or PA's note was reviewed and I agree with the note.
Comment: General: Well developed, well nourished in NAD.
Neck: Supple, no JVD, HJR, carotids +2 B/L, no bruits bilaterally.
Heart: Non displaced PMI, RRR, no murmurs, No S3, S4, no rubs.
Lungs: Scattered rhonchi
Extremities: No clubbing, cyanosis or edema bilaterally.
Neuro: Grossly nonfocal, awake, alert and oriented x3.
Stable cardiology status for discharge with the addition of Ranexa. She will follow-up with outpatient cardiology in [place]. Copy of Cath CD and echo report and cath report given to patient. Discussed with primary service.
Original Note:
Today's Communication / Plan
-
add ranexa
continue asa, plavix
discs of echo/cath for patient
OP cardiac follow up arranged
plan for DC today
Impression / Plan
-
Primary Automotive Parts Interpreter: Dr. Martir Leon, [facility]
Impression:
NSTEMI, cath with severe cachil dehe MV CAD, BROWN to LAD patent, SVG to D1 occluded 12/17/24
CAD status post CABG/PCI
Statin intolerant hypercholesterolemia on Praluent
COPD
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
Hypertension
Diet controlled diabetes
Weight loss
ECHO 12/17/24: EF 61%, no regional wall motion abnormalities noted, MAC, mild MR, trace AR
Plan:
- Underwent cardiac catheterization 12/17/2024 with severe cachil dehe multivessel CAD, patent BROWN to LAD and SVG to D1 occluded.
- Plan for medical management
- Left wrist site with dressing clean dry and intact
- In sinus rhythm on review of telemetry overnight. she is intolerant to beta-adrianna therapy
- She is also intolerant to Norvasc
- She was agreeable to addition of Ranexa, started by me today
- Continue aspirin, Plavix
- She has history of statin intolerance
- Will have patient ambulate, and hopefully for discharge today. She has follow-up arranged with her primary manager apple for 01/09/2025
- will provide patient with discs of cath/echo to take to primary cards for review
- Discussed with nursing
Progress Note - Automotive Parts Interpreter
Subjective
Date of Service: December 18, 2024
Denies chest pain or shortness of breath overnight. Reports wrist feels better now than when she woke up this morning
Objective
Labs:
12/18/24 01:49
12/18/24 01:49
Labs
Hgb 10.2 g/dL (12.0-16.0) L 12/18/24 01:49
Hct 31.3 % (37.0-47.0) L 12/18/24 01:49
Plt Count 219 10^3/uL (130-400) 12/18/24 01:49
PT 15.0 Sec (11.4-14.6) H 12/15/24 14:47
INR 1.15 12/15/24 14:47
APTT 92.4 Sec (23.4-35.0) H 12/17/24 09:10
Sodium 136 mmol/L (135-145) 12/18/24 01:49
Potassium 3.7 mmol/L (3.5-5.1) 12/18/24 01:49
BUN 12 mg/dl (7-17) 12/18/24 01:49
Creatinine 0.9 mg/dL (0.6-1.0) 12/18/24 01:49
Glucose 103 mg/dl (70-99) H 12/18/24 01:49
Troponins
12/15/24 12/15/24 12/15/24
14:47 17:15 22:57
Troponin I 0.154 H* Cancelled 0.157 H*
12/16/24
05:35
Troponin I 0.112 H* D
Vital Signs and I&O:
Vital Signs
Temp Pulse Resp BP Pulse Ox
98.0 F 75 16 169/57 90
12/18/24 07:47 12/18/24 09:15 12/18/24 07:47 12/18/24 09:15 12/18/24 07:47
Vital Signs
Temp Pulse Resp BP Pulse Ox
98.0 F 75 16 169/57 90
12/18/24 07:47 12/18/24 09:15 12/18/24 07:47 12/18/24 09:15 12/18/24 07:47
Intake & Output
12/16/24 12/17/24 12/18/24 12/19/24
07:59 07:59 07:59 07:59
Intake Total 250 / 250 360 / 360 588 / 588
Balance 250 / 250 360 / 360 588 / 588
Physical Exam
Physical Exam
GEN: No distress, awake, alert, oriented x3
HEENT: supple, anicteric, mmm, eomi
LUNGS: CTA B/L, no wheezes/rales
CV: Reg, S1/S2, no murmur
ABD: soft, BS+, NT/ND
EXT: No cyanosis, clubbing, edema
NEURO: Gross non-focal
SKIN: Warm, pink, dry. No rash. L wrist site with dressing c/d/i
[2024-12-18] MEDS: RANEXA EXTENDED RELEASE 500 MG PO (09:48)
--- NOTE | 2024-12-18 10:15 | CM ---
Reviewed chart. Met with Mrs. Cosby to review discharge plans. She states she is feeling much better and maybe able to go home soon. Prior to admission she resides with her spouse in a one story home with three steps to enter. Prior to
admission she was independent with ambulation and adls She does not have any DME in the home. She has a prescription plan with [facility] and uses [facility]. Medical work-up in progress. The discharge plan is to return home with her
spouse when medically stable.
[2024-12-18] MEDS: ZOFRAN 4 MG IV (10:38)
[2024-12-18] MEDS: FLUSH (NSS) 1 FLUSH IV (10:39)
--- NOTE | 2024-12-18 10:58 | PTCARENOTE ---
received patient this am sleeping in bed, monitor shows NSR, VSS. patient is easily aroused, raspy, soft spoken due to radiation. left radial arm is tender to touch, palpable distal pulse. patient is c/o feeling nauseated, zofran given as ordered.
[2024-12-18 11:31] VITALS: BP 153/71
[2024-12-18] MEDS: ZESTRIL 2.5 MG PO (11:55)
--- NOTE | 2024-12-18 14:32 | W.DCSUMMARY ---
Discharge Summary
Discharge Data
Date of Admission: 12/15/24
Date of Discharge: 12/18/24
Total time spent discharging patient (in min): 35
-
Pending Results: No
Hospital Course
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
and chronic cough, presented with chest pain for about 10 days duration leading up to presentation. She had an overnight observation stay at [facility] and since then has had 3 or 4 ER visits, [address] [facility] facility 2 at [facility] facility
and now [facility]. Cardiac catheterization was mentioned in the detectable troponin was mentioned. At times she left the hospital ER for different reasons. Patient was started on Heparin Drip and given nitrate. IV Bumex was given for
suspected volume overload. Cardiac cath was performed on 12/17/24, and per the style advisor's report, the conclusions were as follows: 1. Severe [place] multivessel coronary artery disease; 2. BROWN to LAD is widely patent; 3. Saphenous vein graft
to D1 appears to be occluded. Rn Hematology mentioned that there were no obvious PCI targets, and recommended to continue aggressive medical therapy and risk factor modification for secondary coronary artery disease prevention. Patient was started on
Ranexa. Patient was doing better and stable for discharge.
Discharge Plan
-
Patient Disposition: Home (Routine Discharge)
Discharge Diagnosis/Procedures: #Chest Pain with Non-ST elevation IL, cath with severe [place] multivessel CAD, BROWN to LAD patent, SVG to D1 occluded 12/17/24
#Coronary Artery Disease status post CABG/PCI
#Statin intolerant hypercholesterolemia on Praluent
#Intolerant to beta adrianna and Norvasc (Amlodipine)
#Hypokalemia
#Nausea
#Chronic cough
#Essential hypertension
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
#History of insomnia/anxiety
#History of dental implants/chronic antibiotic therapy
#COPD
#Diet controlled diabetes mellitus
#Weight loss
Condition: Good
Diet: Low Cholesterol, Low Sodium and Diabetic, Carb Controlled
Activity: As tolerated
Driving Restrictions: No driving for 24 hours
Blood Work: CBC, BMP and Magnesium with your primary care provider in 2 to 3 days
Stand Alone Forms: DC Instructions- Cath/EP Lab
Referrals:
Martir Leon [Other] - 01/09/25 10:00 am
Referral Note: You have a cardiology follow up appointment with Dr. Leon's PA, Alize. Please call with questions.
Jose Oakley MD [Family Provider, Ophthalmology]
Additional Discharge Medication Instructions: Ranolazine is a new medication.
Prescriptions:
New
ranolazine 500 mg Tablet Extended Release 12 Hr
500 mg PO BID Qty: 60 1RF
Continued
clopidogrel [Plavix] 75 mg tablet
75 mg PO DAILY
Patient Comments:
must have brand, patient has brought her own supply
acetaminophen 500 mg Tablet
500 mg PO DAILYPRN PRN (Reason: mild pain)
alprazolam 0.25 mg tablet
0.25 mg PO HS
aspirin 81 mg Tablet
81 mg PO DAILY
lisinopril 5 mg tablet
5 mg PO BID
scopolamine base 1 mg over 3 days Patch 3 Day
1 patch TRANSDERMAL DAILY
Rx Instructions:
on at bedtime, off in the am
doxycycline hyclate 20 mg tablet
20 mg PO BID
lisinopril 2.5 mg tablet
2.5 mg PO NOON
Visbiome 112.5 billion cell Capsule
1 cap PO DAILY
Praluent Pen 150 mg/mL pen injector
150 mg SC Q2W
Discharge Orders:
Discharge Patient (As Directed); Ordered 12/18/24
Ordered By: Elmo Sauceda
Care Plan Goals
Care Plan Goals:
Problem: Readiness for enhanced knowledge related to diagnosis and treatment plan
Goal: Understand your diagnosis and treatment plan needs, including medications if applicable.
Instructions: Know your diagnosis, underlying causes and treatment plan options, including medications if applicable. Consult with your health care team to learn about your diagnosis and treatment plan, including medications if applicable.
Discharge Date and Time
Discharge Date/Time: 12/18/24 16:13
Print Language: WOLOF
[2024-12-18 15:00] VITALS: BP 152/71
--- NOTE | 2024-12-18 15:44 | PTCARENOTE ---
D/C instructions given to patient, verbalizes understanding. INT x 2 D/C'd, telemetry D/C'd, personal belongings packed and sent home with patient. patients own mediations returned to her. waiting for to arrive for leaf size picker.
--- NOTE | 2024-12-18 16:13 | PTCARENOTE ---
D/C to home via wc accompanied by staff.
== END 2024-12-18 16:13 | disposition home or self-care (01) | DRG 282 ==
LOC: IVU 16:56
PROVIDERS: Nurse Practitioner; ADMITTING PHYSICIAN Internal Medicine; ATTENDING PHYSICIAN Hospitalist; CONSULT PHYSICIAN Internal Medicine Cardiovascular Disease; EMERGENCY PHYSICIAN Student in an Organized Health Care Education/Training Program; FAMILY PHYSICIAN Ophthalmology
PROC: B2121ZZ Fluoroscopy of Single Coronary Artery Bypass Graft using Low Osmolar Contrast (ICD-10-PCS; 2024-12-17)
PROC: B2111ZZ Fluoroscopy of Multiple Coronary Arteries using Low Osmolar Contrast (ICD-10-PCS; 2024-12-17)
PROC: 4A023N7 Measurement of Cardiac Sampling and Pressure, Left Heart, Percutaneous Approach (ICD-10-PCS; 2024-12-17)
DX: I21.4 Non-ST elevation (NSTEMI) myocardial infarction (principal); I25.710 Atherosclerosis of autologous vein coronary artery bypass graft(s) with unstable angina pectoris; R49.0 Dysphonia; I25.110 Atherosclerotic heart disease of native coronary artery with unstable angina pectoris; E78.00 Pure hypercholesterolemia, unspecified; J44.9 Chronic obstructive pulmonary disease, unspecified; E87.6 Hypokalemia; R11.0 Nausea; I10 Essential (primary) hypertension; E11.9 Type 2 diabetes mellitus without complications; F41.9 Anxiety disorder, unspecified; G47.00 Insomnia, unspecified; Z85.21 Personal history of malignant neoplasm of larynx; Z98.61 Coronary angioplasty status; Z95.1 Presence of aortocoronary bypass graft; Z79.82 Long term (current) use of aspirin; Z88.8 Allergy status to other drugs, medicaments and biological substances; Z92.3 Personal history of irradiation; Z87.891 Personal history of nicotine dependence; Z79.2 Long term (current) use of antibiotics; Z11.52 Encounter for screening for COVID-19
CPT/HCPCS: 71046; 80048; 80053; 83880; 84484; 85025; 85027; 85610; 85730; 87811; 93005; 93306; 93459; 96365; 96366; 96367; 99152; 99153; 99291; C1769; C1894; Q9967